=== PATIENT | female | born 1980 | race Caucasian/White ===

== ENCOUNTER → 2019-08-30 | Emergency (ER) | payer OTHER ==
[~2019-08-30] VITALS: Ht 162.6 cm; Wt 58.0 kg
[~2019-08-30] MED LIST: SUMAtriptan succ. 6 MG/0.5ml vial SQ ONE; diphenhydrAMINE 50 mg/ml inj IV ONE; ketorolac trometh. 30mg/ml inj. IV ONE; proCHLORperazine 10 MG/2 ml inj IV PRN
[2019-08-30 18:55] VITALS: BP 99/63
== END | disposition home or self-care (01) ==
LOC: ER 14:31
DX: G44.209 Tension-type headache, unspecified, not intractable (principal); E03.9 Hypothyroidism, unspecified
CPT/HCPCS: 96372; 96374; 96375; 99283; J0780; J1200; J1885; J3030

== ENCOUNTER 2021-02-01 12:31 | Emergency (ER) | payer OTHER ==
[~2021-02-01] VITALS: Ht 162.6 cm; Wt 62.7 kg
[2021-02-01 12:39] VITALS: BP 117/79
[2021-02-01] MEDS ORDERED: ketorolac tromethamine 15mg/ml inj. IM ONE (14:15)
[2021-02-01] MEDS ORDERED: ketorolac trometh. 30mg/ml inj. IM ONE (14:20)
== END 2021-02-01 14:43 | disposition home or self-care (01) ==
LOC: ER 12:32
DX: S06.0X0A Concussion without loss of consciousness, initial encounter (principal); M54.2 Cervicalgia; R51.9 Headache, unspecified; E03.9 Hypothyroidism, unspecified; Z72.89 Other problems related to lifestyle; X58.XXXA Exposure to other specified factors, initial encounter; Y93.89 Activity, other specified; Y92.89 Other specified places as the place of occurrence of the external cause; Y99.8 Other external cause status
CPT/HCPCS: 96372; 99283; J1885